=== PATIENT | female | born 1990 | race Caucasian/White ===

== ENCOUNTER 2017-10-31 19:09 | Emergency (ER) | payer OTHER ==
[~2017-10-31] VITALS: Ht 160 cm; Wt 52.2 kg
[~2017-10-31 19:09] MED LIST: CEPHALEXIN 500500 M2; CIPROFLOXACIN500 M1 PO; NAPROSYN500 MG PO; NOHOMEMEDICATIONS; NORCO 5-325 TA1 EACH PO; PEPCID40 MG PO; PHENERGAN 25 MG25 M1 PO; PRILOSEC40 MG PO; PYRIDIUM100 MG PO; TRAZODONE 150150 M1
[2017-10-31 20:00] LABS: URINE BILIRUBIN NEGATIVE (Negative); URINE BLOOD NEGATIVE (Negative); URINE CLARITY SL CLOUDY; URINE COLOR YELLOW; URINE GLUCOSE-RANDOM NEGATIVE (Negative); URINE KETONES NEGATIVE (Negative); URINE LEUKOCYTES 1+ (Negative); URINE NITRITE POSITIVE (Negative); URINE PROTEIN NEGATIVE (Negative); URINE SPECIFIC GRAVITY 1.025 (1.005-1.030); URINE UROBILINOGEN 0.2 E.U./dl (0.2-1.0)
[2017-10-31 20:04] LABS: SQUAMOUS >10 Many /LPF (0-3)
[2017-10-31 20:05] LABS: BACTERIA >30 Many /HPF (None Seen); CASTS None Seen /LPF (None Seen); CRYSTALS None Seen /LPF (None Seen); MUCUS 0-3 Light strn/LPF (None Seen)
[2017-10-31 20:06] LABS: URINE RBC 0-2 Rare /HPF (0-2); URINE WBC 6-15 Few /HPF (0-5)
[2017-10-31] MEDS ORDERED: NAPROSYN500 MG PO (21:04)
[2017-10-31] MEDS ORDERED: BACTRIM DS TAB1 EACH PO (21:04)
[2017-10-31] MEDS ORDERED: FLAGYL500 MG PO (21:04)
[2017-10-31] MEDS ORDERED: NORCO 5-325 TA1 EACH PO (21:04)
[2017-10-31] MEDS ORDERED: CIPRO500 MG PO ×2 (21:05→21:06)
[2017-10-31 21:16] VITALS: BP 137/85
== END 2017-10-31 21:17 | disposition home or self-care (01) ==
LOC: M.ERS 19:09
PROVIDERS: Physician Assistant
DX: N61.1 Abscess of the breast and nipple (principal); N30.00 Acute cystitis without hematuria; F15.10 Other stimulant abuse, uncomplicated; F17.210 Nicotine dependence, cigarettes, uncomplicated; N76.0 Acute vaginitis; Z88.8 Allergy status to other drugs, medicaments and biological substances

== ENCOUNTER 2017-11-09 10:25 | Emergency (ER) | payer OTHER, MEDICAID ==
[~2017-11-09] VITALS: Ht 165.1 cm; Wt 57.6 kg
[~2017-11-09 10:25] MED LIST changes: +BACTRIM DS TAB1 EACH PO; +CIPRO500 MG PO; +FLAGYL500 MG PO
[2017-11-09 10:59] LABS: URINE BILIRUBIN NEGATIVE (Negative); URINE BLOOD NEGATIVE (Negative); URINE CLARITY CLOUDY; URINE COLOR YELLOW; URINE GLUCOSE-RANDOM NEGATIVE (Negative); URINE KETONES NEGATIVE (Negative); URINE LEUKOCYTES-REFLEX NEGATIVE (Negative); URINE NITRITE-REFLEX NEGATIVE (Negative); URINE PROTEIN NEGATIVE (Negative); URINE UROBILINOGEN 0.2 E.U./dl (0.2-1.0)
[2017-11-09 11:07] LABS: AMORPHOUS PHOSPHATES Many /LPF (None Seen); MUCUS >6 Heavy strn/LPF (None Seen); SQUAMOUS >10 Many /LPF (0-3)
[2017-11-09 11:08] LABS: BACTERIA-REFLEX 1-9 Few /HPF (None Seen); CASTS None Seen /LPF (None Seen); URINE RBC 0-2 Rare /HPF (0-2); URINE WBC-REFLEX 0-5 Rare /HPF (0-5)
[2017-11-09] MEDS ORDERED: KEFLEX500 M1 PO (11:16)
[2017-11-09] MEDS ORDERED: NAPROSYN500 MG PO (11:16)
[2017-11-09 11:31] VITALS: BP 115/72
== END 2017-11-09 11:32 | disposition home or self-care (01) ==
LOC: M.ERS 10:25
PROVIDERS: Nurse Practitioner Family
DX: N61.1 Abscess of the breast and nipple (principal); N76.0 Acute vaginitis; B96.89 Other specified bacterial agents as the cause of diseases classified elsewhere; F17.210 Nicotine dependence, cigarettes, uncomplicated; Z87.440 Personal history of urinary (tract) infections; Z88.8 Allergy status to other drugs, medicaments and biological substances

== ENCOUNTER 2018-02-09 17:44 | Emergency (ER) | payer OTHER, MEDICAID ==
[~2018-02-09] VITALS: Ht 162.6 cm; Wt 51.3 kg
[~2018-02-09 17:44] MED LIST changes: +KEFLEX500 M1 PO
[2018-02-09] MEDS ORDERED: CLEOCIN HCL150 MG PO (17:52)
[2018-02-09 20:03] LABS: URINE BILIRUBIN NEGATIVE (Negative); URINE BLOOD NEGATIVE (Negative); URINE CLARITY CLEAR; URINE COLOR YELLOW; URINE GLUCOSE-RANDOM NEGATIVE (Negative); URINE KETONES NEGATIVE (Negative); URINE LEUKOCYTES-REFLEX NEGATIVE (Negative); URINE NITRITE-REFLEX NEGATIVE (Negative); URINE PROTEIN NEGATIVE (Negative); URINE SPECIFIC GRAVITY >= 1.030 (1.005-1.030); URINE UROBILINOGEN 0.2 E.U./dl (0.2-1.0)
[2018-02-09] MEDS ORDERED: NORCO 5-325 TA1 EAC1 PO (20:41)
[2018-02-09] MEDS ORDERED: DOXYCYCLINE 10100 M1 PO (20:41)
[2018-02-09 21:04] VITALS: BP 107/64
== END 2018-02-09 21:05 | disposition home or self-care (01) ==
LOC: M.ERS 17:44
PROVIDERS: Nurse Practitioner Family
DX: L02.31 Cutaneous abscess of buttock (principal); L03.317 Cellulitis of buttock; F17.210 Nicotine dependence, cigarettes, uncomplicated; Z87.440 Personal history of urinary (tract) infections; Z88.8 Allergy status to other drugs, medicaments and biological substances

== ENCOUNTER 2018-04-24 04:13 | Emergency (ER) | payer OTHER ==
[~2018-04-24] VITALS: Ht 160 cm; Wt 47.6 kg
[~2018-04-24 04:13] MED LIST changes: +CLEOCIN HCL150 MG PO; +DOXYCYCLINE 10100 M1 PO; +NORCO 5-325 TA1 EAC1 PO
[2018-04-24] MEDS ORDERED: ZOFRAN ODT4 MG DISSOLVE (04:29)
[2018-04-24 04:59] LABS: ABSOLUTE BASOPHILS 0.1 thou/uL (0.0-0.2); ABSOLUTE EOSINOPHILS 0.1 thou/uL (0.0-0.7); ABSOLUTE LYMPHOCYTES 3.2 thou/uL (0.8-5.3); ABSOLUTE MONOCYTES 0.8 thou/uL (0.0-1.2); ABSOLUTE NEUTROPHILS 4.8 thou/uL (1.6-8.1); BASOPHILS 0.6 %; HEMATOCRIT 32.8 % (37.0-47.0); HEMOGLOBIN 10.7 gm/dL (12.0-15.0); LYMPHOCYTES 35.8 %; MCH 26.7 pg (26.0-34.0); MCHC 32.6 g/dL (28.0-37.0); MCV 81.7 fL (80.0-100.0); MONOCYTES 8.8 %; MPV 8.1 fl. (7.2-11.1); NUCLEATED RBCS 0 /100WBC; PLATELET COUNT* 317 thou/uL (150-400); POLYS 53.8 %; RBC 4.02 mil/uL (4.20-5.00); RDW-CV 20.1 % (10.5-14.5)
[2018-04-24 05:03] LABS: URINE BILIRUBIN NEGATIVE (Negative); URINE BLOOD NEGATIVE (Negative); URINE CLARITY CLEAR; URINE COLOR YELLOW; URINE GLUCOSE-RANDOM NEGATIVE (Negative); URINE KETONES NEGATIVE (Negative); URINE LEUKOCYTES NEGATIVE (Negative); URINE NITRITE NEGATIVE (Negative); URINE PROTEIN NEGATIVE (Negative); URINE SPECIFIC GRAVITY 1.015 (1.005-1.030); URINE UROBILINOGEN 0.2 E.U./dl (0.2-1.0)
[2018-04-24 05:12] LABS: CALCIUM 8.8 mg/dL (8.5-10.1); CREATININE 0.7 mg/dL (0.6-1.3); POTASSIUM 3.8 mmol/L (3.5-5.1)
[2018-04-24 05:16] LABS: ALBUMIN 3.6 g/dL (3.4-5.0); TOTAL BILIRUBIN 0.1 mg/dL (<0.1-1.0)
[2018-04-24 06:55] LABS: ANISOCYTOSIS 2+; PLATELET ESTIMATE ADEQUATE
[2018-04-24 08:26] VITALS: BP 108/62
== END 2018-04-24 08:27 | disposition home or self-care (01) ==
LOC: M.ERS 04:13
PROVIDERS: Emergency Medicine Emergency Medical Services
DX: O23.591 Infection of other part of genital tract in pregnancy, first trimester (principal); B96.89 Other specified bacterial agents as the cause of diseases classified elsewhere; O46.8X1 Other antepartum hemorrhage, first trimester; F17.210 Nicotine dependence, cigarettes, uncomplicated; Z3A.01 Less than 8 weeks gestation of pregnancy; Z87.440 Personal history of urinary (tract) infections; Z88.8 Allergy status to other drugs, medicaments and biological substances

== ENCOUNTER 2018-05-22 21:53 | Emergency (ER) | payer OTHER, MEDICAID ==
[~2018-05-22] VITALS: Ht 160 cm; Wt 58.5 kg
[~2018-05-22 21:53] MED LIST changes: +ZOFRAN ODT4 MG DISSOLVE
[2018-05-22 22:06] LABS: URINE BLOOD NEGATIVE (Negative); URINE CLARITY CLEAR; URINE COLOR YELLOW; URINE GLUCOSE-RANDOM NEGATIVE (Negative); URINE KETONES TRACE (Negative); URINE NITRITE-REFLEX NEGATIVE (Negative); URINE PROTEIN TRACE (Negative); URINE UROBILINOGEN 0.2 E.U./dl (0.2-1.0)
[2018-05-22 22:10] LABS: ICTOTEST (BILI CONFIRMATORY) Negative (Negative); URINE BILIRUBIN 1+ (Negative); URINE LEUKOCYTES-REFLEX 3+ (Negative)
[2018-05-22 22:19] LABS: MUCUS 4-6 Moderate strn/LPF (None Seen); SQUAMOUS >10 Many /LPF (0-3)
[2018-05-22 22:20] LABS: BACTERIA-REFLEX 1-9 Few /HPF (None Seen); CASTS None Seen /LPF (None Seen); CRYSTALS None Seen /LPF (None Seen); URINE RBC None Seen /HPF (0-2)
[2018-05-22 22:23] LABS: ABSOLUTE BASOPHILS 0.1 thou/uL (0.0-0.2); ABSOLUTE MONOCYTES 0.8 thou/uL (0.0-1.2); BASOPHILS 0.6 %; EOSINOPHILS 0.4 %; HEMATOCRIT 34.6 % (37.0-47.0); HEMOGLOBIN 11.6 gm/dL (12.0-15.0); LYMPHOCYTES 20.5 %; MCH 27.2 pg (26.0-34.0); MCHC 33.5 g/dL (28.0-37.0); MCV 81.3 fL (80.0-100.0); MONOCYTES 7.8 %; MPV 7.8 fl. (7.2-11.1); NUCLEATED RBCS 0 /100WBC; PLATELET COUNT* 321 thou/uL (150-400); POLYS 70.7 %; RBC 4.26 mil/uL (4.20-5.00); WBC 9.9 thou/uL (4.0-11.0)
[2018-05-22 22:27] LABS: CALCIUM 8.9 mg/dL (8.5-10.1); CREATININE 0.6 mg/dL (0.6-1.3)
[2018-05-22 22:32] LABS: ALBUMIN 3.2 g/dL (3.4-5.0); TOTAL BILIRUBIN 0.3 mg/dL (<0.1-1.0); TOTAL PROTEIN 7.6 g/dL (6.4-8.2)
[2018-05-22 22:39] LABS: AMP/METHAMP POSITIVE (Negative); BARBITURATES Negative (Negative); BENZODIAZEPINES POSITIVE (Negative); COCAINE Negative (Negative); METHADONE Negative (Negative); OPIATES Negative (Negative); PCP Negative (Negative); THC Negative (Negative)
[2018-05-23] MEDS ORDERED: FLAGYL500 MG PO (00:35)
[2018-05-23 00:40] VITALS: BP 115/79
== END 2018-05-23 00:45 | disposition home or self-care (01) ==
LOC: M.ERS 21:53
PROVIDERS: Emergency Medicine
DX: O99.351 Diseases of the nervous system complicating pregnancy, first trimester (principal); O21.8 Other vomiting complicating pregnancy; O26.891 Other specified pregnancy related conditions, first trimester; A59.9 Trichomoniasis, unspecified; O23.41 Unspecified infection of urinary tract in pregnancy, first trimester; O99.331 Smoking (tobacco) complicating pregnancy, first trimester; Z3A.12 12 weeks gestation of pregnancy; Z88.8 Allergy status to other drugs, medicaments and biological substances; Z79.899 Other long term (current) drug therapy

== ENCOUNTER 2018-09-14 00:43 | Emergency (ER) | payer OTHER, MEDICAID ==
[~2018-09-14] VITALS: Ht 160 cm; Wt 61.2 kg
[2018-09-14] MEDS ORDERED: PRENA1 PEARL S1 EACH (00:55)
[2018-09-14 01:08] LABS: HEMATOCRIT 24.9 % (37.0-47.0); HEMOGLOBIN 8.1 gm/dL (12.0-15.0); MCH 23.7 pg (26.0-34.0); MCHC 32.4 g/dL (28.0-37.0); MCV 73.2 fL (80.0-100.0); MPV 7.3 fl. (7.2-11.1); NUCLEATED RBCS 0 /100WBC; PLATELET COUNT* 244 thou/uL (150-400); RDW-CV 18.2 % (10.5-14.5); WBC 10.5 thou/uL (4.0-11.0)
[2018-09-14 01:33] LABS: ALBUMIN 2.6 g/dL (3.4-5.0); CALCIUM 8.5 mg/dL (8.5-10.1); CREATININE 0.5 mg/dL (0.6-1.3); POTASSIUM 4.1 mmol/L (3.5-5.1); TOTAL BILIRUBIN 0.2 mg/dL (<0.1-1.0); TOTAL PROTEIN 6.9 g/dL (6.4-8.2); URIC ACID* 2.6 mg/dL (2.6-7.2)
[2018-09-14 01:44] LABS: URINE BILIRUBIN NEGATIVE (Negative); URINE BLOOD NEGATIVE (Negative); URINE CLARITY CLEAR; URINE COLOR YELLOW; URINE GLUCOSE-RANDOM NEGATIVE (Negative); URINE KETONES NEGATIVE (Negative); URINE LEUKOCYTES-REFLEX 1+ (Negative); URINE NITRITE-REFLEX NEGATIVE (Negative); URINE PROTEIN NEGATIVE (Negative); URINE UROBILINOGEN 0.2 E.U./dl (0.2-1.0)
[2018-09-14 01:53] LABS: AMP/METHAMP Negative (Negative); BARBITURATES Negative (Negative); BENZODIAZEPINES Negative (Negative); COCAINE Negative (Negative); METHADONE Negative (Negative); OPIATES Negative (Negative); PCP Negative (Negative); THC Negative (Negative)
[2018-09-14 02:24] LABS: SQUAMOUS >10 Many /LPF (0-3)
[2018-09-14 02:25] LABS: CASTS None Seen /LPF (None Seen); URINE WBC-REFLEX 6-15 Few /HPF (0-5)
[2018-09-14 02:26] LABS: CRYSTALS None Seen /LPF (None Seen); URINE RBC None Seen /HPF (0-2); YEAST-REFLEX Present (None Seen)
[2018-09-14 02:30] LABS: ABSOLUTE BASOPHILS 0.1 thou/uL (0.0-0.2); ABSOLUTE EOSINOPHILS 0.1 thou/uL (0.0-0.7); ABSOLUTE MONOCYTES 0.4 thou/uL (0.0-1.2); ABSOLUTE NEUTROPHILS 6.8 thou/uL (1.6-8.1); METAMYELOCYTES 2 %
[2018-09-14 02:31] LABS: ANISOCYTOSIS 1+; LARGE PLATELETS OCCASIONAL; PLATELET ESTIMATE ADEQUATE; TOXIC GRANULATION Occasional
[2018-09-14 02:32] LABS: HYPOCHROMASIA 1+; MICROCYTES 1+
[2018-09-14 03:24] VITALS: BP 114/65
== END 2018-09-14 03:25 | disposition short-term general hospital (02) ==
LOC: M.ERS 00:43
PROVIDERS: Emergency Medicine
DX: O26.893 Other specified pregnancy related conditions, third trimester (principal); R10.13 Epigastric pain; F17.210 Nicotine dependence, cigarettes, uncomplicated; Z88.8 Allergy status to other drugs, medicaments and biological substances; Z3A.30 30 weeks gestation of pregnancy